=== PATIENT | male | born 1960 | race Caucasian/White ===

== ENCOUNTER 2018-02-23 01:34 | Emergency (ER) | payer OTHER ==
[~2018-02-23] VITALS: Ht 162.6 cm; Wt 63.5 kg
[2018-02-23 01:38] VITALS: BP 129/87
--- NOTE | 2018-02-23 01:51 | NUR ---
PT NOTED YELLING AT EMS AND HOSPITAL SECURITY AND STAFF. PT THREATENING TO SPIT AT HOSPITAL SECURITY. PT BEGAN WALKING OUT OF ER STATING "IM OUT OF THIS FUCKING PLACE, GET OUT OF MY WAY". PT AMBULATED OUT WITH STEADY GAIT NOTED.
== END 2018-02-23 01:54 | disposition left against medical advice (07) ==
LOC: ER 01:35
DX: R51 Headache (principal); F32.9 Major depressive disorder, single episode, unspecified; F17.200 Nicotine dependence, unspecified, uncomplicated; F15.10 Other stimulant abuse, uncomplicated; Z59.0 Homelessness; Z98.890 Other specified postprocedural states; Z96.631 Presence of right artificial wrist joint; Z88.6 Allergy status to analgesic agent; Z88.8 Allergy status to other drugs, medicaments and biological substances; Z88.9 Allergy status to unspecified drugs, medicaments and biological substances; Z53.21 Procedure and treatment not carried out due to patient leaving prior to being seen by health care provider
CPT/HCPCS: A4606; Z7610

== ENCOUNTER 2018-03-06 05:13 | Emergency (ER) | payer OTHER ==
[~2018-03-06] VITALS: Ht 165.1 cm; Wt 67.1 kg
--- NOTE | 2018-03-06 05:15 | NUR ---
PT BIBSELF COMPLAINING OF DEPRESSION AND SUICIDE IDEATION. PT STATES "I DON'T WANT TO LIVE ANYMORE" BUT DENIES ANY PLAN OR RECENT ACTION OF HARMING SELF. PT DENIES HI, A/V HALLUCINATIONS. PT AAOX4. RESPIRATIONS EVEN AND UNLABORED. VITAL SIGNS STABLE. NO ACUTE DISTRESS NOTED. PT PLACED IN GOWN, SUICIDE PRECAUTIONS IN PLACE. WILL CONTINUE TO MONITOR
--- NOTE | 2018-03-06 05:20 | NUR ---
MD AT BEDSIDE FOR EVALUATION
--- NOTE | 2018-03-06 05:35 | NUR ---
AUTOMATIC PRINT DEVELOPER AT BEDSIDE FOR BLOOD DRAW
--- NOTE | 2018-03-06 05:41 | NUR ---
RADIOLOGY AT BEDSIDE FOR XRAY
--- NOTE | 2018-03-06 05:50 | NUR ---
URINE COLLECTED AND SENT TO LAB
[2018-03-06 05:55] LABS: BASOPHILS % (AUTO) 0.4 % (0.0-2.0); EOSINOPHILS % (AUTO) 0.9 % (0.0-6.0); HEMATOCRIT 40 % (39-51); HEMOGLOBIN 13.9 g/dL (13.5-17.5); LYMPHOCYTES # (AUTO) 1.1 /CMM (0.8-4.8); LYMPHOCYTES % (AUTO) 12.2 % (20.0-44.0); MEAN CORPUSCULAR HGB CONC 35 g/dl (31.0-36.0); MEAN CORPUSCULAR VOLUME 93 fL (80-96); MONOCYTES # (AUTO) 0.7 /CMM (0.1-1.30); MONOCYTES % (AUTO) 7.8 % (2.0-12.0); NEUTROPHILS # (AUTO) 6.8 /CMM (1.8-8.9); NEUTROPHILS % (AUTO) 78.7 % (43.0-81.0); PLATELET COUNT (AUTO) 306 /CMM (150-450); RED BLOOD CELL COUNT(AUTO) 4.32 MIL/uL (4.5-6.0); WHITE BLOOD COUNT (AUTO) 8.7 K/uL (4.3-11.0)
[2018-03-06 06:04] LABS: CALCIUM, SERUM 9.8 mg/dL (8.5-10.1); CARBON DIOXIDE 31 mmol/L (21-32); CHLORIDE 98 mmol/L (98-107); CREATININE 0.9 mg/dL (0.6-1.3); GLUCOSE 95 mg/dL (74-106); POTASSIUM 4.2 mmol/L (3.5-5.1); SODIUM SERUM 138 mmol/L (136-145); UREA NITROGEN, BLOOD 19 mg/dL (7-18)
[2018-03-06 06:10] LABS: ALANINE AMINOTRANSFERASE 39 U/L (12-78); ALBUMIN 4.1 g/dL (3.4-5.0); ALCOHOL, BLOOD < 3 mg/dL (0-0); ALKALINE PHOSPHATASE 93 U/L (46-116); ASPARTATE AMINOTRANSFERASE 38 U/L (15-37); BILIRUBIN,DIRECT 0.2 mg/dL (0.0-0.2); BILIRUBIN,TOTAL 0.8 mg/dL (0.2-1.0)
[2018-03-06 06:19] LABS: APPEARANCE,URINE CLEAR (CLEAR); BILIRUBIN,URINE NEGATIVE (NEGATIVE); BLOOD, URINE NEGATIVE Ery/uL (NEGATIVE); COLOR,URINE YELLOW (YELLOW); KETONES,URINE NEGATIVE (NEGATIVE); LEUKOCYTE ESTERASE ,URINE NEGATIVE (NEGATIVE); NITRITE, URINE NEGATIVE (NEGATIVE); PROTEIN,URINE NEGATIVE (NEGATIVE); UGLUCOSE NEGATIVE (NEGATIVE); UROBILINOGEN,URINE 0.2 EU/dL (0.2)
--- NOTE | 2018-03-06 07:30 | NUR ---
Patient discharged to home in stable condition. Written and verbal after care instructions given. Patient verbalizes understanding of instruction. Pt ambulatory with a steady gait. Pt denies any SI/HI thoughts at this time.
[2018-03-06 07:32] VITALS: BP 128/76
== END 2018-03-06 07:32 | disposition home or self-care (01) ==
LOC: ER 05:20
DX: S62.631A Displaced fracture of distal phalanx of left index finger, initial encounter for closed fracture (principal); F32.9 Major depressive disorder, single episode, unspecified; F17.200 Nicotine dependence, unspecified, uncomplicated; Z98.890 Other specified postprocedural states; Z88.6 Allergy status to analgesic agent; Z88.8 Allergy status to other drugs, medicaments and biological substances; Z59.0 Homelessness; Y04.0XXA Assault by unarmed brawl or fight, initial encounter; Y93.89 Activity, other specified; Y92.89 Other specified places as the place of occurrence of the external cause; Y99.8 Other external cause status
CPT/HCPCS: 36415; 73140-TC; 80048-TC; 80076-TC; 80305; 81000-TC; 85025-TC; A4606; A6402; G0480

== ENCOUNTER 2018-03-23 17:59 | Emergency (ER) | payer OTHER ==
[~2018-03-23] VITALS: Ht 162.6 cm; Wt 63.5 kg
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
--- NOTE | 2018-03-23 18:26 | NUR ---
URINE COLLECTED AND SENT TO LAB
[2018-03-23 18:36] LABS: BASOPHILS % (AUTO) 0.3 % (0.0-2.0); EOSINOPHILS % (AUTO) 2.6 % (0.0-6.0); HEMATOCRIT 36 % (39-51); HEMOGLOBIN 12.4 g/dL (13.5-17.5); LYMPHOCYTES % (AUTO) 16.4 % (20.0-44.0); MEAN CORPUSCULAR HGB CONC 34 g/dl (31.0-36.0); MEAN CORPUSCULAR VOLUME 95 fL (80-96); MONOCYTES # (AUTO) 0.5 /CMM (0.1-1.30); MONOCYTES % (AUTO) 8.2 % (2.0-12.0); NEUTROPHILS # (AUTO) 4.6 /CMM (1.8-8.9); NEUTROPHILS % (AUTO) 72.5 % (43.0-81.0); PLATELET COUNT (AUTO) 238 /CMM (150-450); WHITE BLOOD COUNT (AUTO) 6.3 K/uL (4.3-11.0)
[2018-03-23 18:41] LABS: APPEARANCE,URINE Clear (CLEAR); BILIRUBIN,URINE Negative (NEGATIVE); BLOOD, URINE Negative Ery/uL (NEGATIVE); COLOR,URINE Yellow (YELLOW); KETONES,URINE Negative (NEGATIVE); LEUKOCYTE ESTERASE ,URINE Negative (NEGATIVE); NITRITE, URINE Negative (NEGATIVE); PROTEIN,URINE Negative (NEGATIVE); UGLUCOSE Negative (NEGATIVE); UROBILINOGEN,URINE 0.2 EU/dL (0.2)
[2018-03-23 18:45] LABS: CALCIUM, SERUM 8.4 mg/dL (8.5-10.1); CARBON DIOXIDE 29 mmol/L (21-32); CHLORIDE 102 mmol/L (98-107); CREATININE 0.8 mg/dL (0.6-1.3); GLUCOSE 92 mg/dL (74-106); POTASSIUM 4.1 mmol/L (3.5-5.1); SODIUM SERUM 136 mmol/L (136-145); UREA NITROGEN, BLOOD 17 mg/dL (7-18)
[2018-03-23 18:51] LABS: ACETAMINOPHEN < 2 ug/ml (10-30); ALANINE AMINOTRANSFERASE 28 U/L (12-78); ALBUMIN 3.3 g/dL (3.4-5.0); ALCOHOL, BLOOD < 3 mg/dL (0-0); ALKALINE PHOSPHATASE 71 U/L (46-116); ASPARTATE AMINOTRANSFERASE 36 U/L (15-37); BILIRUBIN,DIRECT 0.1 mg/dL (0.0-0.2); BILIRUBIN,TOTAL 0.4 mg/dL (0.2-1.0); SALICYLATE < 2.8 mg/dL (2.8-20.0); TOTAL PROTEIN, SERUM 6.7 g/dL (6.4-8.2)
--- NOTE | 2018-03-23 19:14 | NUR ---
called pinky eta 60 min
--- NOTE | 2018-03-23 21:00 | NUR ---
Patient is resting comfortably in bed with eyes closed. Easily aroused. VSS
--- NOTE | 2018-03-23 22:30 | NUR ---
REPORT GIVEN TO TA FROM [facility] REGARDING PT TRANSFER, ETA 0000.
[2018-03-24] VITALS: BP 116/68
--- NOTE | 2018-03-24 00:18 | NUR ---
TRANSPORTED TO [facility]. NO S/S OF DISTRESS NOTED. RESP EVEN AND UNLABORED.
== END 2018-03-24 00:20 ==
LOC: ER 18:17
DX: R45.851 Suicidal ideations (principal); F32.9 Major depressive disorder, single episode, unspecified; F19.10 Other psychoactive substance abuse, uncomplicated; F17.200 Nicotine dependence, unspecified, uncomplicated; Z98.890 Other specified postprocedural states; Z88.8 Allergy status to other drugs, medicaments and biological substances; Z88.6 Allergy status to analgesic agent; Z59.0 Homelessness
CPT/HCPCS: 36415; 80048-TC; 80076-TC; 80305; 81000-TC; 85025-TC; G0480

== ENCOUNTER 2018-07-16 11:41 | Emergency (ER) | payer OTHER ==
[~2018-07-16] VITALS: Ht 162.6 cm; Wt 67.1 kg
[2018-07-16 11:47] VITALS: BP 108/70
[2018-07-16] MEDS ORDERED: TRAMADOL HCL 50 MG TABLET PO ONE (12:00)
[2018-07-16] MEDS ORDERED: predniSONE 20 MG TABLET PO ONE (12:00)
--- NOTE | 2018-07-16 12:10 | NUR ---
PT SEEN BY FARHAD TORRES, BUT LEFT WITHOUT BEING TREATED. REFUSED MEDICATION, FOOD, AND HOMELESS RESOURCES. PA AWARE.
== END 2018-07-16 12:17 | disposition home or self-care (01) ==
LOC: ER 11:43
DX: G89.29 Other chronic pain (principal); M54.5 Low back pain; F32.9 Major depressive disorder, single episode, unspecified; F17.200 Nicotine dependence, unspecified, uncomplicated; Z98.890 Other specified postprocedural states; Z88.8 Allergy status to other drugs, medicaments and biological substances; Z88.6 Allergy status to analgesic agent; Z59.0 Homelessness

== ENCOUNTER 2018-07-17 09:32 | Emergency (ER) | payer OTHER ==
[~2018-07-17] VITALS: Ht 162.6 cm; Wt 67.1 kg
--- NOTE | 2018-07-17 09:58 | NUR ---
PT BROUGHT IN FROM HOME WITH C/C OF BACK PROBLEMS PT ALERT [facility] ORIENTATION X 4
[2018-07-17] MEDS ORDERED: MORPHINE SULFATE INJ 4 MG/ML DISP.SYRIN ONE (10:00)
[2018-07-17] MEDS ORDERED: ONDANSETRON HCL/PF - ER 4 MG/2 ML VIAL IM ONE (10:00)
[2018-07-17] MEDS ORDERED: MORPHINE SULFATE INJ 4 MG/ML DISP.SYRIN IM ONE (10:00)
[2018-07-17] MEDS ORDERED: ONDANSETRON HCL/PF 4 MG/2 ML VIAL ONE (10:00)
[2018-07-17 10:32] VITALS: BP 117/82
--- NOTE | 2018-07-17 10:34 | NUR ---
PT DISCHARGED TO HOME WALKED WITH STEADY GAIT PT GIVEN ZOFRAN BUT REFUSED MORPHINE STATES HE IS DRIVING GIVEN ACI AND PRESCRIPTION
== END 2018-07-17 10:33 | disposition home or self-care (01) ==
LOC: ER 09:33
DX: M54.5 Low back pain (principal); F32.9 Major depressive disorder, single episode, unspecified; F12.90 Cannabis use, unspecified, uncomplicated; Z98.890 Other specified postprocedural states; Z88.8 Allergy status to other drugs, medicaments and biological substances; Z88.6 Allergy status to analgesic agent; Z59.0 Homelessness
CPT/HCPCS: 96372 ×2; 99283; J2270; J2405

== ENCOUNTER 2018-07-20 01:26 | Emergency (ER) | payer OTHER ==
[~2018-07-20] VITALS: Ht 162.6 cm; Wt 64.0 kg
--- NOTE | 2018-07-20 01:45 | NUR ---
NT TO MONITOR, BIBS , A, OX4. C/O BACKACHE. NO NUMBNESS OR TINGLING. ABLE TO AMBULATE WITH STEADY GATE TO THE BED. NO LIMPING NOTED. VSS. WILL CONT TO MONITOR ,
[2018-07-20] MEDS ORDERED: oxyCODONE/APAP (5/325 MG) 1 UDTAB TABLET ONE (01:56)
[2018-07-20] MEDS ORDERED: CYCLOBENZAPRINE 10 MG TABLET ONE (01:56)
[2018-07-20] MEDS ORDERED: ONDANSETRON 4 MG TAB.RAPDIS ONE (01:56)
[2018-07-20 02:00] VITALS: BP 121/71
[2018-07-20] MEDS ORDERED: ONDANSETRON 4 MG TAB.RAPDIS SL ONE (02:00)
[2018-07-20] MEDS ORDERED: oxyCODONE/APAP (5/325 MG) 1 UDTAB TABLET PO ONE (02:00)
[2018-07-20] MEDS ORDERED: CYCLOBENZAPRINE 10 MG TABLET PO ONE (02:00)
--- NOTE | 2018-07-20 02:00 | NUR ---
let for x.ray
[2018-07-20 02:11] LABS: APPEARANCE,URINE Clear (CLEAR); BILIRUBIN,URINE Negative (NEGATIVE); BLOOD, URINE Negative Ery/uL (NEGATIVE); COLOR,URINE Yellow (YELLOW); KETONES,URINE Negative (NEGATIVE); LEUKOCYTE ESTERASE ,URINE Negative (NEGATIVE); NITRITE, URINE Negative (NEGATIVE); PROTEIN,URINE Negative (NEGATIVE); UGLUCOSE Negative (NEGATIVE)
--- NOTE | 2018-07-20 02:18 | NUR ---
Patient was discharged in stable condition. Written and verbal after care instructions given. Patient verbalizes understanding of instruction. pt refused homeless resources, and said he has his own accomodation. food and snacks provided. he had proper clothing. refused tap card for transportation. tx given and ID band was removed.
[2018-07-20 02:25] LABS: BACTERIA,URINE Few /HPF (None Seen); RBC,URINE 0-2 /HPF (0-2); SPERM,URINE Few /HPF (None Seen); SQUAMOUS EPITHELIAL CELL,UR Rare /HPF (None Seen); WBC,URINE 0-2 /HPF (0-3)
== END 2018-07-20 02:18 | disposition home or self-care (01) ==
LOC: ER 01:34
DX: G89.29 Other chronic pain (principal); M54.5 Low back pain; F17.200 Nicotine dependence, unspecified, uncomplicated; Z59.0 Homelessness; F32.9 Major depressive disorder, single episode, unspecified; Z98.890 Other specified postprocedural states; Z88.8 Allergy status to other drugs, medicaments and biological substances; Z88.6 Allergy status to analgesic agent
CPT/HCPCS: 72110-TC; 81000-TC; Q0162

== ENCOUNTER 2018-09-28 23:28 | Emergency (ER) | payer OTHER ==
[~2018-09-28] VITALS: Ht 160 cm; Wt 63.5 kg
--- NOTE | 2018-09-29 00:10 | NUR ---
PT BIBSELF C/C +SI WITH PLAN TO OD ON PILLS, -HI, -HALLUCINATIONS. PT AOX4. NAD NOTED. RESP EVEN AND UNLABORED. PT ON MONITOR IN BED 13. WILL CONTINUE TO MONITOR.
--- NOTE | 2018-09-29 00:23 | NUR ---
PHLEB AT BEDSIDE FOR LAB DRAW
[2018-09-29] MEDS ORDERED: IBUPROFEN 600 MG TABLET PO ONE ×2 (00:26→00:30)
--- NOTE | 2018-09-29 00:29 | NUR ---
URINE COLLECTED AND SENT TO LAB
[2018-09-29 00:30] LABS: BASOPHILS # (AUTO) 0.1 /CMM (0.0-0.2); BASOPHILS % (AUTO) 0.6 % (0.0-2.0); EOSINOPHILS % (AUTO) 0.1 % (0.0-6.0); HEMATOCRIT 40 % (39-51); HEMOGLOBIN 13.6 g/dL (13.5-17.5); LYMPHOCYTES # (AUTO) 0.4 /CMM (0.8-4.8); LYMPHOCYTES % (AUTO) 3.7 % (20.0-44.0); MEAN CORPUSCULAR HGB CONC 34 g/dl (31.0-36.0); MEAN CORPUSCULAR VOLUME 97 fL (80-96); MONOCYTES # (AUTO) 0.7 /CMM (0.1-1.30); MONOCYTES % (AUTO) 6.2 % (2.0-12.0); NEUTROPHILS # (AUTO) 10.5 /CMM (1.8-8.9); NEUTROPHILS % (AUTO) 89.4 % (43.0-81.0); PLATELET COUNT (AUTO) 272 /CMM (150-450); RED BLOOD CELL COUNT(AUTO) 4.11 MIL/uL (4.5-6.0); WHITE BLOOD COUNT (AUTO) 11.8 K/uL (4.3-11.0)
[2018-09-29 00:38] LABS: CALCIUM, SERUM 9.1 mg/dL (8.5-10.1); CARBON DIOXIDE 30 mmol/L (21-32); CHLORIDE 98 mmol/L (98-107); CREATININE 1.2 mg/dL (0.6-1.3); GLUCOSE 103 mg/dL (74-106); POTASSIUM 3.6 mmol/L (3.5-5.1); SODIUM SERUM 136 mmol/L (136-145); UREA NITROGEN, BLOOD 18 mg/dL (7-18)
[2018-09-29 00:44] LABS: ACETAMINOPHEN 0 ug/ml (10-30); ALANINE AMINOTRANSFERASE 34 U/L (12-78); ALCOHOL, BLOOD < 3 mg/dL (0-0); ALKALINE PHOSPHATASE 83 U/L (46-116); ASPARTATE AMINOTRANSFERASE 35 U/L (15-37); BILIRUBIN,DIRECT 0.3 mg/dL (0.0-0.2); BILIRUBIN,TOTAL 1.8 mg/dL (0.2-1.0); SALICYLATE < 0.2 mg/dL (2.8-20.0); TOTAL PROTEIN, SERUM 7.5 g/dL (6.4-8.2)
--- NOTE | 2018-09-29 00:54 | NUR ---
PT MOVED TO BED 7
[2018-09-29 00:56] LABS: APPEARANCE,URINE Clear (CLEAR); BILIRUBIN,URINE Negative (NEGATIVE); BLOOD, URINE Trace-intact Ery/uL (NEGATIVE); COLOR,URINE Yellow (YELLOW); KETONES,URINE Negative (NEGATIVE); LEUKOCYTE ESTERASE ,URINE Negative (NEGATIVE); NITRITE, URINE Negative (NEGATIVE); PROTEIN,URINE Trace mg/dl (NEGATIVE); UGLUCOSE Negative (NEGATIVE)
[2018-09-29 01:08] LABS: RBC,URINE 0-2 /HPF (0-2); WBC,URINE 0-2 /HPF (0-3)
[2018-09-29 01:09] LABS: BACTERIA,URINE None seen /HPF (None Seen); SQUAMOUS EPITHELIAL CELL,UR Few /HPF (None Seen)
--- NOTE | 2018-09-29 01:30 | NUR ---
RADIOLOGY AT BEDSIDE FOR XRAY
[2018-09-29 01:43] VITALS: BP 127/79
--- NOTE | 2018-09-29 01:43 | NUR ---
TECH AT BEDSIDE FOR EKG
[2018-09-29] MEDS ORDERED: oxyCODONE/APAP (5/325 MG) 1 UDTAB TABLET ONE (01:55)
[2018-09-29] MEDS ORDERED: oxyCODONE/APAP (5/325 MG) 1 UDTAB TABLET PO ONE (02:00)
--- NOTE | 2018-09-29 02:38 | NUR ---
PT RESTING IN BED. VSS. PT NOW DENIES SI, DENIES HI. WILL CONTINUE TO MONITOR.
--- NOTE | 2018-09-29 02:56 | NUR ---
Patient discharged to home in stable condition. Written and verbal after care instructions given. Patient verbalizes understanding of instruction. PT AMBULATORY WITH STEADY GAIT.
== END 2018-09-29 03:18 | disposition home or self-care (01) ==
LOC: ER 23:31
DX: R45.851 Suicidal ideations (principal); F17.200 Nicotine dependence, unspecified, uncomplicated; Z59.0 Homelessness; Z98.890 Other specified postprocedural states; Z88.8 Allergy status to other drugs, medicaments and biological substances; Z88.6 Allergy status to analgesic agent
CPT/HCPCS: 36415; 71045; 80048; 80076; 80305; 80307; 80329; 81001; 85025; 99284; G0480; 81000-TC

== ENCOUNTER 2018-10-16 00:12 | Emergency (ER) | payer OTHER ==
[~2018-10-16] VITALS: Ht 172.7 cm; Wt 68.0 kg
[2018-10-16 00:18] VITALS: BP 144/70
--- NOTE | 2018-10-16 01:07 | NUR ---
Patient does not wish to proceed with medical care recommended by Dr. Robertson. Patient given information related to possible complications, up to and including , which could occur as a result of leaving the hospital at this time. Patient verbalizes understanding of risks involved due to leaving against medical advice. Patient has signed AMA form.
== END 2018-10-16 01:10 | disposition home or self-care (01) ==
LOC: ER 00:18
DX: Z53.21 Procedure and treatment not carried out due to patient leaving prior to being seen by health care provider (principal); F32.9 Major depressive disorder, single episode, unspecified; Z98.890 Other specified postprocedural states

== ENCOUNTER 2018-10-24 02:54 | Emergency (ER) | payer OTHER ==
--- NOTE | 2018-10-24 02:54 | NUR ---
WITNESSED EMS TALKING TO PT, PT LEFT WITHOUT BEING TRIAGE. PARAMEDICS NOTIFIED ME OF PT LEAVING, NO REPORT RECEIVED, UNKNOWN C/C.
== END 2018-10-24 03:07 | disposition home or self-care (01) ==
LOC: ER 03:03
DX: Z53.21 Procedure and treatment not carried out due to patient leaving prior to being seen by health care provider (principal)

== ENCOUNTER 2018-10-24 04:58 | Emergency (ER) | payer OTHER ==
[~2018-10-24] VITALS: Ht 160 cm; Wt 65.8 kg
[2018-10-24 04:58] VITALS: BP 149/86
--- NOTE | 2018-10-24 05:17 | NUR ---
PT REKHA FROM STREET. PER RA, PT C/O SUICIDAL IDEATION WITH PLAN TO HANG HIMSELF. PT DENIES SI, HI, AUDITORY HALLUCINATIONS ON ARRIVAL. PT AAOX4. RESPIRATIONS EVEN AND UNLABORED. SKIN WARM AND INTACT. ABLE TO AMBULATE WITH STEADY GAIT. WILL CONTINUE TO MONITOR
--- NOTE | 2018-10-24 05:18 | NUR ---
ATTEMPTED TO INITIATE SUICIDE PRECAUTIONS. SECURITY AT BEDSIDE. PT REFUSING TO BE DRESS IN GOWN AND HAVE BELONGINGS TAKEN. PT AAOX4, DENIES SI, HI, HALLUCINATIONS AT THIS TIME. ER MD NOTIFIED.
--- NOTE | 2018-10-24 05:38 | NUR ---
Patient given written and verbal discharge instructions. Patient verbalizes understanding of instructions. Patient is ambulatory with steady gait. Refuses offer of care home placement. Patient given list of available shelters in surrounding area.
== END 2018-10-24 05:44 | disposition home or self-care (01) ==
LOC: ER 04:59
DX: R45.851 Suicidal ideations (principal); F19.20 Other psychoactive substance dependence, uncomplicated; F32.9 Major depressive disorder, single episode, unspecified; F10.10 Alcohol abuse, uncomplicated; F17.200 Nicotine dependence, unspecified, uncomplicated; Y90.9 Presence of alcohol in blood, level not specified; Z53.20 Procedure and treatment not carried out because of patient's decision for unspecified reasons; Z59.0 Homelessness; Z98.890 Other specified postprocedural states; Z88.9 Allergy status to unspecified drugs, medicaments and biological substances; Z88.5 Allergy status to narcotic agent; Z88.8 Allergy status to other drugs, medicaments and biological substances; Z88.6 Allergy status to analgesic agent

== ENCOUNTER 2019-02-15 21:41 | Emergency (ER) | payer OTHER ==
[~2019-02-15] VITALS: Ht 162.6 cm; Wt 64.9 kg
[2019-02-15 21:53] VITALS: BP 153/78
--- NOTE | 2019-02-15 22:02 | NUR ---
PT PRESENTED TO THE ER WITH A C/O RT HAND SM WOUND THAT IS HEALING AND SM JEFFREY ABOVE HIS LEFT KNEE. PT AMBULATED INTO THE ER WITH A STEADY GAIT.
--- NOTE | 2019-02-15 22:06 | NUR ---
Leticia MENJIVAR TABLET COATER IS AT THE BEDSIDE.
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
--- NOTE | 2019-02-15 22:38 | NUR ---
PT REC'D TRIPLE ANTIBIOTIC OINTMENT TO THE RT HAND AND AREA WAS COVERED WITH NONADHERENT BANDAGE AND KERLEX AT PT'S REQUEST. PT REFUSED A BANDAID FOR THE HAND. PT ALSO REC'D TRIPLE ANTIBIOTIC OINTMENT TO THE LEFT KNEE AND AREA WAS COVERED WITH A BANDAID.
== END 2019-02-15 22:38 | disposition home or self-care (01) ==
LOC: ER 21:43
DX: S60.511A Abrasion of right hand, initial encounter (principal); A49.02 Methicillin resistant Staphylococcus aureus infection, unspecified site; Z59.0 Homelessness; F32.9 Major depressive disorder, single episode, unspecified; F19.10 Other psychoactive substance abuse, uncomplicated; F10.10 Alcohol abuse, uncomplicated; F17.200 Nicotine dependence, unspecified, uncomplicated; Y90.9 Presence of alcohol in blood, level not specified; Z98.890 Other specified postprocedural states; Z88.6 Allergy status to analgesic agent; Z88.8 Allergy status to other drugs, medicaments and biological substances; Z88.4 Allergy status to anesthetic agent; X58.XXXA Exposure to other specified factors, initial encounter; Y93.89 Activity, other specified; Y92.89 Other specified places as the place of occurrence of the external cause; Y99.8 Other external cause status

== ENCOUNTER 2019-02-26 13:16 | Emergency (ER) | payer OTHER ==
[~2019-02-26] VITALS: Ht 162.6 cm; Wt 63.5 kg
[2019-02-26 13:26] VITALS: BP 134/90
[2019-02-26] MEDS ORDERED: KETOROLAC TROMETHAMINE INJ 30 MG/ML VIAL ONE (13:52)
[2019-02-26] MEDS ORDERED: LORAZEPAM INJ 2 MG/ML VIAL ONE (13:54)
[2019-02-26] MEDS ORDERED: KETOROLAC TROMETHAMINE INJ 60 MG/2 ML VIAL IM ONE (14:00)
[2019-02-26] MEDS ORDERED: LORAZEPAM INJ 2 MG/ML VIAL IM ONE (14:00)
== END 2019-02-26 14:03 | disposition home or self-care (01) ==
LOC: ER 13:17
DX: F15.10 Other stimulant abuse, uncomplicated (principal); F20.9 Schizophrenia, unspecified; F32.9 Major depressive disorder, single episode, unspecified; F17.200 Nicotine dependence, unspecified, uncomplicated; Z98.890 Other specified postprocedural states; Z88.8 Allergy status to other drugs, medicaments and biological substances; Z88.6 Allergy status to analgesic agent; Z59.0 Homelessness
CPT/HCPCS: 96372; 99283; J1885; J2060

== ENCOUNTER 2019-04-18 15:23 | Emergency (ER) | payer OTHER ==
[~2019-04-18] VITALS: Ht 162.6 cm; Wt 63.5 kg
[2019-04-18 15:56] VITALS: BP 130/81
--- NOTE | 2019-04-18 15:57 | NUR ---
PT AAOX4. AMBULATORY WITH STEADY GAIT. BIBSELF C/O Right thumb and middle finger wound x 2weeks. Pt placed on monitor and pulse ox. No acute distress noted. VSS.
--- NOTE | 2019-04-18 16:20 | NUR ---
PT BEING AGGRESSIVE. PT JACY OUT OF THE ED. AWARE.
== END 2019-04-18 16:23 | disposition home or self-care (01) ==
LOC: ER 15:28
DX: S60.391A Other superficial injuries of right thumb, initial encounter (principal); S60.942A Unspecified superficial injury of right middle finger, initial encounter; F32.9 Major depressive disorder, single episode, unspecified; F17.200 Nicotine dependence, unspecified, uncomplicated; Z59.0 Homelessness; Z98.890 Other specified postprocedural states; Z88.8 Allergy status to other drugs, medicaments and biological substances; Z88.6 Allergy status to analgesic agent; X58.XXXA Exposure to other specified factors, initial encounter; Y93.89 Activity, other specified; Y92.89 Other specified places as the place of occurrence of the external cause; Y99.8 Other external cause status

== ENCOUNTER 2019-04-30 14:19 | Emergency (ER) | payer OTHER ==
[~2019-04-30] VITALS: Ht 162.6 cm; Wt 63.5 kg
[2019-04-30 14:31] VITALS: BP 125/82
[2019-04-30] MEDS ORDERED: HYDROCODONE/APAP 5/325MG 1 EACH TABLET ONE (15:13)
--- NOTE | 2019-04-30 15:25 | NUR ---
Patient discharged to home in stable condition. Written and verbal after care instructions given. Patient verbalizes understanding of instruction.
[2019-04-30] MEDS ORDERED: HYDROCODONE/APAP 5/325MG 1 EACH TABLET PO ONE (15:30)
== END 2019-04-30 15:25 | disposition home or self-care (01) ==
LOC: ER 14:21
DX: K04.7 Periapical abscess without sinus (principal); F32.9 Major depressive disorder, single episode, unspecified; Z98.890 Other specified postprocedural states; Z88.8 Allergy status to other drugs, medicaments and biological substances; Z88.6 Allergy status to analgesic agent; Z60.2 Problems related to living alone

== ENCOUNTER 2019-05-19 18:47 | Emergency (ER) | payer OTHER ==
[~2019-05-19] VITALS: Ht 162.6 cm; Wt 65.8 kg
[2019-05-19] MEDS ORDERED: ACETAMINOPHEN ES 500 MG TABLET PO ONE (18:51)
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
--- NOTE | 2019-05-19 19:10 | NUR ---
PT BECOME UNCOOPERATIVE AND AGGRESSIVE TOWARDS STAFF, AWARE, CALLED EUGENE ACTIVATED.
--- NOTE | 2019-05-19 19:14 | NUR ---
PT WAS BIB TRIAGE TO CHAIR, PT REFUSES TO GET IN A CHAIR, WISHES TO BE UNLOADED FROM [facility] G[facility]NEY TO FLOOR. PT REFUSESD TO SIT. DR. ACOSTA CALLED. MSE WAS PERFORMED, PT REFUSES TO BE SCREENED BY DR. ACOSTA. CALLED /JOSELITO EUGENE TO ASSIST PATIENT OUTSIDE VIA W/C, PT STOOD UP AND ASSISTED TO W/C WITH SECURITY, AT EXIT, PT STARTED TO THREATEN STAFF, PT STOOD UP AND STARTED BANGING HIS HEAD ON THE WALL. AT THIS TIME, PT WHEELED TO ER BED 5 TO BE EVALUATED BY DR ACOSTA, PT REFUSED TO COOPERATE, PT THEN ESCORTED BACK OUT WITH ALL BELONGINGS FD, PD, AND SECURITY ALL ESCORTED HIM OUTSIDE.
[2019-05-19] MEDS ORDERED: LORAZEPAM INJ 2 MG/ML VIAL ONE ×2 (19:56→19:59)
[2019-05-19] MEDS ORDERED: OLANZAPINE 10 MG VIAL IM ONE ×3 (19:56→20:00)
[2019-05-19] MEDS ORDERED: diphenhydrAMINE HCL 50 MG/ML VIAL ONE ×2 (19:56→19:58)
--- NOTE | 2019-05-19 19:56 | NUR ---
PT BROUGHT BACK INTO ER HALLWAY BY PAULINE. PT SCREAMING, YELLING, CURSING. REFUSES TO COOPERATE. BROUGHT BY PD AND SECURITY TO ER BED 14.
[2019-05-19] MEDS ORDERED: LORAZEPAM INJ 2 MG/ML VIAL IM ONE (20:00)
[2019-05-19] MEDS ORDERED: diphenhydrAMINE HCL 50 MG/ML VIAL IM ONE (20:00)
--- NOTE | 2019-05-19 20:00 | NUR ---
PT PLACED IN BED 14. [employer] AT BEDSIDE. PT SPITTING AT STAFF, AGRESSIVE, AND CURSING. PLACED ON MONITOR AND PULSE OX. AWAITING MD ORDERS.
--- NOTE | 2019-05-19 20:07 | NUR ---
Restraints applied. Circulation adequate. vss.
[2019-05-19 20:34] LABS: BASOPHILS % (AUTO) 0.6 % (0.0-2.0); EOSINOPHILS % (AUTO) 3.3 % (0.0-6.0); HEMATOCRIT 36 % (39-51); HEMOGLOBIN 12.3 g/dL (13.5-17.5); LYMPHOCYTES # (AUTO) 1.3 /CMM (0.8-4.8); LYMPHOCYTES % (AUTO) 22.3 % (20.0-44.0); MEAN CORPUSCULAR HGB CONC 35 g/dl (31.0-36.0); MEAN CORPUSCULAR VOLUME 96 fL (80-96); MONOCYTES # (AUTO) 0.6 /CMM (0.1-1.30); MONOCYTES % (AUTO) 11.4 % (2.0-12.0); NEUTROPHILS # (AUTO) 3.5 /CMM (1.8-8.9); NEUTROPHILS % (AUTO) 62.4 % (43.0-81.0); PLATELET COUNT (AUTO) 233 /CMM (150-450); RED BLOOD CELL COUNT(AUTO) 3.72 MIL/uL (4.5-6.0); WHITE BLOOD COUNT (AUTO) 5.6 K/uL (4.3-11.0)
[2019-05-19 20:36] LABS: APPEARANCE,URINE Clear (CLEAR); BILIRUBIN,URINE Negative (NEGATIVE); BLOOD, URINE Moderate Ery/uL (NEGATIVE); COLOR,URINE Yellow (YELLOW); KETONES,URINE Negative (NEGATIVE); LEUKOCYTE ESTERASE ,URINE Negative (NEGATIVE); NITRITE, URINE Negative (NEGATIVE); PH,URINE 5.5 (5.0-8.0); PROTEIN,URINE Negative (NEGATIVE); UGLUCOSE Negative (NEGATIVE)
[2019-05-19 20:44] LABS: CALCIUM, SERUM 8.5 mg/dL (8.5-10.1); CARBON DIOXIDE 27 mmol/L (21-32); CHLORIDE 103 mmol/L (98-107); GLUCOSE 118 mg/dL (74-106); POTASSIUM 3.4 mmol/L (3.5-5.1); SODIUM SERUM 139 mmol/L (136-145); UREA NITROGEN, BLOOD 11 mg/dL (7-18)
[2019-05-19 20:48] LABS: WBC,URINE 0-2 /HPF (0-3)
[2019-05-19 20:49] LABS: ALANINE AMINOTRANSFERASE 37 U/L (12-78); ALBUMIN 3.5 g/dL (3.4-5.0); ALCOHOL, BLOOD < 3 mg/dL (0-0); ALKALINE PHOSPHATASE 79 U/L (46-116); ASPARTATE AMINOTRANSFERASE 33 U/L (15-37); BILIRUBIN,DIRECT 0.2 mg/dL (0.0-0.2); BILIRUBIN,TOTAL 0.9 mg/dL (0.2-1.0); TOTAL PROTEIN, SERUM 6.6 g/dL (6.4-8.2)
[2019-05-19 20:49] LABS: BACTERIA,URINE 1+ /HPF (None Seen); MUCUS,URINE Moderate /LPF (None Seen)
--- NOTE | 2019-05-19 20:49 | NUR ---
Patient is resting comfortably in bed. Easily aroused. VSS.
[2019-05-19 20:50] LABS: ACETAMINOPHEN < 10 ug/ml (10-30); SALICYLATE < 0.2 mg/dL (2.8-20.0)
--- NOTE | 2019-05-19 21:58 | NUR ---
Patient is resting comfortably in bed. Easily aroused. VSS.
--- NOTE | 2019-05-19 22:01 | NUR ---
Restraints swithced. vss.
--- NOTE | 2019-05-19 23:49 | NUR ---
PT RESTING, PROVIDED WITH BLANKETS. NO DISTRESS NOTED. VSS.
--- NOTE | 2019-05-20 00:47 | NUR ---
Restraints swithced. Checked for circulation. VSS.
--- NOTE | 2019-05-20 02:52 | NUR ---
PT ASLEEP. VSS.
--- NOTE | 2019-05-20 04:46 | NUR ---
Patient is asleep in bed. Patient is easily arousable. VSS. Sitter at bedside.
--- NOTE | 2019-05-20 05:55 | NUR ---
MD Banda at bedside for evaluations.
--- NOTE | 2019-05-20 06:04 | NUR ---
Patient is taken to CT
--- NOTE | 2019-05-20 07:30 | NUR ---
PT ASSESSED ON BED ASLEEP EASILY AROUSABLE, AAOX3, NOT IN RESPIRATORY DISTRESS ,V/S STABLEM KEPT RESTED AND COMFORTABLE, RESTRAINT SWITCHED AND ASSESSED FOR CIRCULATION.
--- NOTE | 2019-05-20 09:45 | NUR ---
ASSESSED PT ON BED AWAKE AND ALERT, ASSESSED RESTRAINTS CIRCULATION ADEQUATE, V/S STABLE.
--- NOTE | 2019-05-20 11:52 | NUR ---
ASSESSED PT ON BED, CIRCULATION ADEQUATE, V/S STABLE, KEPT RESTED AND COMFORTABLE, WILL CONTINUE TO MONITOR.
[2019-05-20] MEDS ORDERED: MORPHINE SULFATE INJ 4 MG/ML DISP.SYRIN ONE (14:07)
--- NOTE | 2019-05-20 14:17 | NUR ---
ASSESSED PT ON BED AWAKE, NOT IN RESPIRATORY DISTRESS, RESTRAINTS REMOVED, CIRCULATION ADEQUATE, FOOD TRAY PROVIDED, WILL CONTINUE TO MONITOR.
[2019-05-20] MEDS ORDERED: OLANZAPINE 10 MG VIAL IM ONE ×5 (14:20→23:20)
--- NOTE | 2019-05-20 14:25 | NUR ---
CASPER RODRIGUES AT BEDSIDE FOR EVAL.
[2019-05-20] MEDS ORDERED: MORPHINE SULFATE INJ 2 MG/ML DISP.SYRIN IV ONE (14:30)
[2019-05-20] MEDS ORDERED: MORPHINE SULFATE INJ 2 MG/ML DISP.SYRIN IM ONE (14:30)
--- NOTE | 2019-05-20 14:58 | NUR ---
GUEST RELATIONS COORDINATOR met with crisis team chief talent officer and delivery crew worker Mary Ann Malcolm to discuss pt's discharge plan. Pt. continues to be on a 5150 hold. GUEST RELATIONS COORDINATOR per Mary Ann's request gave clinical packet to title coordinator to fax clinical packet to [facility].
--- NOTE | 2019-05-20 22:45 | NUR ---
NOTED INCREASED AGGITATION WITH PATIENT. PT YELLING AND ATTEMPTING TO GET OUT OF BED. ER MD AWARE, SITTER STILL AT BEDSIDE.
[2019-05-20] MEDS ORDERED: LORAZEPAM INJ 2 MG/ML VIAL IM ONE (23:00)
[2019-05-20] MEDS ORDERED: diphenhydrAMINE HCL 50 MG/ML VIAL IM ONE (23:00)
[2019-05-20] MEDS ORDERED: LORAZEPAM INJ 2 MG/ML VIAL ONE ×2 (23:07→23:20)
[2019-05-20] MEDS ORDERED: diphenhydrAMINE HCL 50 MG/ML VIAL ONE ×2 (23:07→23:20)
--- NOTE | 2019-05-20 23:30 | NUR ---
PT REFUSING ZYPREXA. FARHAD LOCKHART MADE AWARE
--- NOTE | 2019-05-21 00:40 | NUR ---
PT RESTING COMFORTABLE IN BED. VITAL SIGNS STABLE. SITTER STILL AT BEDSIDE
--- NOTE | 2019-05-21 04:21 | NUR ---
PT ON CONSTANT OBSERVATION W SITTER AT BEDSIDE. NO ACUTE DISTRESS NOTED. VSS AT THIS TIME.
--- NOTE | 2019-05-21 05:09 | NUR ---
PT YELLING AND VERBALLY ABUSIVE TO STAFF.
--- NOTE | 2019-05-21 08:03 | NUR ---
PATIENT IN BED ASLEEP, AROUSABLE BY VOICE. RESTRAINT ON R HAND, CIRCULATION ADEQUATE, HOOKED TO MONITOR. SITTER AT BEDSIDE.
[2019-05-21] MEDS ORDERED: OLANZAPINE 10 MG VIAL IM ONE ×2 (10:41→11:00)
[2019-05-21] MEDS ORDERED: diphenhydrAMINE HCL 50 MG/ML VIAL ONE (10:42)
--- NOTE | 2019-05-21 10:46 | NUR ---
PATIENT VERBALLY AGGRESSIVE, TRIED TO SPIT AND KICK STAFF. MADE MD AWARE.
[2019-05-21] MEDS ORDERED: diphenhydrAMINE HCL 50 MG/ML VIAL IM ONE (11:00)
--- NOTE | 2019-05-21 18:02 | NUR ---
[facility]. STILL TRYING TO LOOK FOR PLACEMENT. CALL BACK NUMBER: [phone] (LOOK FOR [facility] AFTER 1830)
--- NOTE | 2019-05-21 19:41 | NUR ---
PER IDRIS FROM INTAKE, NO BEDS AVAILABLE AT [facility]. CASE CURRENTLY BEING UNDER REVIEW FOR POSSIBLE TRANSFER TO [facility] OR [facility]. WILL FOLLOW UP
--- NOTE | 2019-05-21 23:13 | NUR ---
cm with [facility] called, says unable to take pt due to not contracted with [facility]
--- NOTE | 2019-05-22 03:17 | NUR ---
PT RESTING COMFORTABLY. NO ACUTE DISTRESS NOTED. PT ON CONSTANT OBSERVATION W/ SITTER AT BEDSIDE. WILL CONTINUE TO MONITOR FOR SAFETY
--- NOTE | 2019-05-22 04:40 | NUR ---
PT RESTING COMFORTABLY. NO ACUTE DISTRESS NOTED. PT ON CONSTANT OBSERVATION W/ SITTER AT BEDSIDE. WILL CONTINUE TO MONITOR FOR SAFETY
--- NOTE | 2019-05-22 06:21 | NUR ---
PT RESTING COMFORTABLY IN BED. VITAL SIGNS STABLE. NO ACUTE DISTRESS NOTED AT THIS TIME. PT CALM AND COOPERATIVE. SITTER STILL AT BEDSIDE. WILL CONTINUE TO MONITOR
--- NOTE | 2019-05-22 08:13 | NUR ---
dietary called for breakfast tray
--- NOTE | 2019-05-22 10:00 | NUR ---
Patient awke non restraint noted able to ambulated to restroom sitter stand by ,no agitaion noted continue to monitor
--- NOTE | 2019-05-22 11:36 | NUR ---
Called Report to Ashli made aware patient medicated Morpine and continue monitor
--- NOTE | 2019-05-22 12:14 | NUR ---
RECIEVED CALL FROM [facility] IS STILL LOOKING FOR PLACEMENT FOR THIS PATIENT
--- NOTE | 2019-05-22 13:00 | NUR ---
ASSESSED PT ON BED AWAKE, AAOX4, NOT IN RESPIRATORY DISTRESS, V/S STABLE, KEPT RESTED AND COMFORTABLE, WILL CONTNUE TO MONITOR.
--- NOTE | 2019-05-22 13:17 | NUR ---
FOOD TRAY PROVIDED.
--- NOTE | 2019-05-22 15:56 | NUR ---
LIZ MCLEAN CRISISTEAM AT BEDSIDE FOR EVAL.
[2019-05-22] MEDS ORDERED: OLANZAPINE 5 MG TABLET PO ONE (17:30)
[2019-05-22] MEDS ORDERED: OLANZAPINE 5 MG TABLET ONE (17:48)
--- NOTE | 2019-05-22 19:28 | NUR ---
PER SENDY FROM [facility], WAITING FOR BED AVAILABILITY AT [facility].
[2019-05-23 04:38] VITALS: BP 127/76
--- NOTE | 2019-05-23 04:38 | NUR ---
PT RESTING COMFORTABLY IN BED, VITAL SIGNS STABLE. NO ACUTE DISTRESS NOTED AT THIS TIME. SITTER AT BEDSIDE. WILL CONTINUE TO MONITOR
--- NOTE | 2019-05-23 05:29 | NUR ---
PER [facility]TA[facility], NO BEDS AVAILABLE AT THIS TIME
--- NOTE | 2019-05-23 08:31 | NUR ---
FOOD TRAY AT BEDSIDE
--- NOTE | 2019-05-23 10:15 | NUR ---
IRIS was informed by Syed at [facility] they have 4 male beds available at [place]. MEAT MOLDER faxed clinical referral packet to [facility] intake.
--- NOTE | 2019-05-23 11:12 | NUR ---
patient accepted at [facility], waiting for bed information.
--- NOTE | 2019-05-23 11:12 | NUR ---
MANAGER ENVIRONMENTAL HEALTH AND SAFETY spoke with CJ at [facility] intake regarding updated. CJ informed MANAGER ENVIRONMENTAL HEALTH AND SAFETY pt has been accepted at [facility] and they will have discharges at 12:30PM. MANAGER ENVIRONMENTAL HEALTH AND SAFETY updated VINAY Garcia in ED.
--- NOTE | 2019-05-23 13:51 | NUR ---
IRIS received a call from YAIMA at [facility] intake stating pt has been accepted to [place]. Accepting Dr. Devine/Dr. Pereira. Report called to [phone] Addendum: 05/23/19 at 1354 by MG CHEW SW Report to VINAY Mercado at [place]. Blade in ED updated.
[2019-05-23] MEDS ORDERED: ACETAMINOPHEN 325 MG TABLET PO ONE (14:30)
--- NOTE | 2019-05-23 15:01 | NUR ---
PT DID NOT WANT TO GO [facility], PT DECIDED TO LEAVE AMA; DOES NOT WANT TO SIGN AMA; PT ELOPED.
== END 2019-05-23 15:01 | disposition left against medical advice (07) ==
LOC: ER 18:50
DX: R45.851 Suicidal ideations (principal); F32.9 Major depressive disorder, single episode, unspecified; F17.200 Nicotine dependence, unspecified, uncomplicated; Z98.890 Other specified postprocedural states; Z88.8 Allergy status to other drugs, medicaments and biological substances; Z88.6 Allergy status to analgesic agent; Z59.0 Homelessness
CPT/HCPCS: 36415; 80048; 80076; 80305; 80307; 80329; 81001; 85025; 96372 ×2; 99285; 99406; G0480; J1200 ×4; J2060 ×2; J2270; J3490 ×6; 81000-TC

== ENCOUNTER 2019-06-14 02:57 | Emergency (ER) | payer OTHER ==
[~2019-06-14] VITALS: Ht 160 cm; Wt 63.5 kg
--- NOTE | 2019-06-14 03:12 | NUR ---
PATIENT CAME TO ER BED 4 C/O PAIN WHEN URINATING. PATIENT STATES THAT HE HAS BEEN HAVING PAINFUL URINATION FOR ABOUT A MONTH. STATES THAT HE DRIBBLES AFTER FINISHED PEEING. AAOX4. NO SOB. BREATHING EVENLY AND UNLABORED ON ROOM AIR.
--- NOTE | 2019-06-14 03:15 | NUR ---
URINE COLLECTED AND SENT TO THE LAB.
[2019-06-14 03:29] LABS: APPEARANCE,URINE Cloudy (CLEAR); BILIRUBIN,URINE Negative (NEGATIVE); BLOOD, URINE Trace-intact Ery/uL (NEGATIVE); COLOR,URINE Yellow (YELLOW); KETONES,URINE Negative (NEGATIVE); LEUKOCYTE ESTERASE ,URINE Trace (NEGATIVE); NITRITE, URINE Positive (NEGATIVE); PROTEIN,URINE Trace mg/dl (NEGATIVE); UGLUCOSE Negative (NEGATIVE)
[2019-06-14 03:59] LABS: BACTERIA,URINE Many /HPF (None Seen); SQUAMOUS EPITHELIAL CELL,UR Rare /HPF (None Seen); WBC,URINE 51-80 /HPF (0-3)
[2019-06-14] MEDS ORDERED: AZITHROMYCIN 250 MG TABLET ONE (04:13)
[2019-06-14] MEDS ORDERED: CEFTRIAXONE 500 MG VIAL ONE (04:13)
[2019-06-14] MEDS ORDERED: LIDOCAINE /MPF 1% VIAL 5 ML VIAL ONE (04:15)
--- NOTE | 2019-06-14 04:28 | NUR ---
Patient discharged to home in stable condition. Written and verbal after care instructions given. Patient verbalizes understanding of instruction.
[2019-06-14] MEDS ORDERED: AZITHROMYCIN 250 MG TABLET PO ONE (04:30)
[2019-06-14] MEDS ORDERED: CEFTRIAXONE 500 MG VIAL IM ONE (04:30)
[2019-06-14 04:38] VITALS: BP 121/77
== END 2019-06-14 04:39 | disposition home or self-care (01) ==
LOC: ER 02:58
DX: N39.0 Urinary tract infection, site not specified (principal); R10.33 Periumbilical pain; R30.0 Dysuria; Z88.2 Allergy status to sulfonamides; Z88.8 Allergy status to other drugs, medicaments and biological substances; Z88.4 Allergy status to anesthetic agent; Z88.7 Allergy status to serum and vaccine; Z98.890 Other specified postprocedural states; Z59.0 Homelessness
CPT/HCPCS: 81001; 87086; 96372; 99283; J0696; J3490; 81000-TC; 87186-TC

== ENCOUNTER 2019-07-17 14:16 | Emergency (ER) | payer OTHER ==
[~2019-07-17] VITALS: Ht 152.4 cm; Wt 59.0 kg
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
--- NOTE | 2019-07-17 14:35 | NUR ---
SEEN AND EXAMINED BY
--- NOTE | 2019-07-17 14:40 | NUR ---
CALLED PAULINE [phone] AUTOMOTIVE COLLISION REPAIR INSTRUCTOR #[id number]
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
--- NOTE | 2019-07-17 15:14 | NUR ---
PAULINE OFFICER NEGIN #[phone] OF [facility] AT BEDSIDE FOR INVESTIGATION
--- NOTE | 2019-07-17 15:28 | NUR ---
Patient given written and verbal discharge instructions. Patient verbalizes understanding of instructions. Patient is ambulatory with steady gait. Refuses offer of [facility] placement. Patient given list of available shelters in surrounding area. patient in proper clothing upon discharge, name band removed, all belongings returned to the patient
[2019-07-17 15:37] VITALS: BP 131/84
== END 2019-07-17 15:38 | disposition home or self-care (01) ==
LOC: ER 14:55
DX: S10.83XA Contusion of other specified part of neck, initial encounter (principal); Z59.0 Homelessness; Z98.890 Other specified postprocedural states; Z88.2 Allergy status to sulfonamides; Z88.6 Allergy status to analgesic agent; Z88.8 Allergy status to other drugs, medicaments and biological substances; Z88.7 Allergy status to serum and vaccine; Y04.8XXA Assault by other bodily force, initial encounter; Y93.89 Activity, other specified; Y92.89 Other specified places as the place of occurrence of the external cause; Y99.8 Other external cause status

== ENCOUNTER 2020-04-19 13:36 | Emergency (ER) | payer OTHER ==
[~2020-04-19] VITALS: Ht 162.6 cm; Wt 65.8 kg
[2020-04-19 13:47] VITALS: BP 140/91
[2020-04-19] MEDS ORDERED: CLIN300C12 PO (14:36)
== END 2020-04-19 15:07 | disposition home or self-care (01) ==
LOC: ER 13:39
DX: S90.32XA Contusion of left foot, initial encounter (principal); M79.672 Pain in left foot; F10.10 Alcohol abuse, uncomplicated; F17.200 Nicotine dependence, unspecified, uncomplicated; F32.9 Major depressive disorder, single episode, unspecified; Z98.890 Other specified postprocedural states; Z88.2 Allergy status to sulfonamides; Z88.8 Allergy status to other drugs, medicaments and biological substances; Z88.6 Allergy status to analgesic agent; Z60.2 Problems related to living alone; Y90.9 Presence of alcohol in blood, level not specified; X58.XXXA Exposure to other specified factors, initial encounter; Y93.89 Activity, other specified; Y92.89 Other specified places as the place of occurrence of the external cause; Y99.8 Other external cause status
CPT/HCPCS: 73630-TC